=== PATIENT | female | born 2005 | race Two or more races ===

== ENCOUNTER 2025-03-03 17:36 | Inpatient (IN) | payer MEDICAID, OTHER ==
[~2025-03-03] VITALS: Ht 170.2 cm; Wt 51.7 kg
--- NOTE | 2025-03-03 18:03 | ED.PDOC ---
GI ASSESSMENT HPI Comments 19 y.o female presents to the ED for a chief complaint of nausea and vomiting that started 2 weeks ago and is unable to keep anything down. Nonbilious nonbloody. Patient also mentions having a syncopal episode today and complains of lower back pain x 1 year s/p delivering her son. Patient reports back pain was intermittent but recently became more frequent and sharp. Pain is nonradiating. Patient denies any recent falls, back injuries, surgeries, dysuria, hematuria, vaginal bleeding, chills. [facility] and took tablet dosage as suggested. Vitals: Temperature: 100.3 F BP: 95/66 HR: 115 RR: 16 SP02: 95% RA Past medical history: depression, anxiety, and ADHD Past surgical history: 2 neck cyst removed Allergies to morphine and lidocaine HPI: Poor Historian. REVIEW OF SYSTEMS: CONSTITUTIONAL: Denies acute: fever, diaphoresis, chills, HEAD: Denies acute: headache, photophobia Eyes: Denies acute: Double vision, vision loss, eye pain, eye discharge. EARS: Denies acute: tinnitus, hearing loss, ear discharge, ear pain, THROAT: Denies acute: sore throat, swelling, difficulty swallowing , pain with swallowing, change in voice. NECK: Denies acute: neck pain, neck swelling, stiff neck. HEART: Denies acute : chest pain, palpitations, LUNGS: Denies acute: SOB, wheezing, cough, hemoptysis ABDOMEN: Denies acute: abdominal pain, diarrhea, melena , hematemesis, hematochezia SKIN: Denies acute: rash, redness, lesions, itchiness. EXTREMITIES: Denies acute: calf pain, numbness, tingling, weakness, denies pain in extremity. Neuro: Denies acute: focal neurological deficit, motor or sensory focal neurological deficit, tremors, seizure like activity, confusion, dizziness, change in mental status, loss of bowel or bladder function, cauda equina like symptoms. : Denies acute: dysuria, hematuria, flank pain, increase in urinary frequency. PSYCH: Denies acute: hallucination, suicidal ideation, homicidal ideation. FEMALE: Denies acute: abnormal vaginal bleeding, foul odor, unusual discharge. PHYSICAL EXAM: General: ----[id number]----acute distress, awake and alert. Head: normocephalic, atraumatic. Neck: supple, trachea is midline, no swelling. Throat: Normal phonation. Eyes:, no erythema, no purulent discharge, no proptosis, no icterus. Heart: regular tachycardia, no significant murmur appreciated. Lungs: no apparent respiratory distress, Able to speak in full sentences. No wheezing, no rhonchi, no crackles. No stridors Clear to auscultation bilaterally. Abdomen: non tender to palpation, non distended, soft, no guarding, no rebound, + bowel sounds. Neuro: Awake, Alert, oriented to name, self, situation, follows commands GCS=15. Speech is normal. Skin: no petechia, no purpura, no cyanosis, non-pale, not jaundice. Lower extremities: --no - Pitting edema no deformity, no focal swelling, no calf TTP. Makes eye contact. moves all four extremities. Face: no apparent facial droop. Ambulating in the ED independently. ED COURSE: Chief Complaint: Nausea/Vomiting Time Seen by MD: 17:53 Primary Care Provider: unknown Reviewed Notes: Nurses Notes, Allergies Allergies: Coded Allergies: Lidocaine (Verified Allergy, Severe, anaphylaxis, 03/03/25) Morphine (Verified Allergy, Severe, anaphylaxis, 03/03/25) Information Source: Patient Mode of Arrival: Ambulatory Duration: Since onset Past Medical History PAST MEDICAL HISTORY: Anxiety, Depression Past Medical History (Other): ADHD CLAIM REP History: No Pertinent CLAIM REP History Family History Family History: Reviewed,noncontributory to illness Social History Smoker: Non-Smoker Alcohol: Denies ETOH Use Drugs: Denies Drug Use Lives In: Home Was a procedure done? Was a procedure done?: No GI differential Dx Differential Diagnosis: Gastroenteritis, Inflammatory BD, Ovarian cyst/torsion, Pancreatitis, UTI, Dehydration, Electrolyte Imbalance, Food Poisoning, , Bacterial, Parasitic, Viral, Other (DDX include Diverticulitis, colitis, gastroenteritis, acute abdomen, SBO, enteritis, constipation, volvulus, appendicitis, Gallbladder disease, choledocolithiasis, ascending cholangitis, pancreatitis, intraAbdominal mass/neoplasm, hepatitis, UTI, pylonephritis, kidney stone, aneurysm, dissection, Inflammatory bowel disease, gastroparesis, ischemic bowel, ovarian torsion, ovarian cyst/mass, tubo-ovarian abscess, , ectopic , PID, STD. Rule out endometritis or retained products of conception) X-Ray, Labs, Meds, VS Vital Signs Date Time Temp Pulse Resp B/P (MAP) Pulse Ox O2 Delivery O2 Flow Rate FiO2 03/03/25 21:13 99.0 99.0 03/03/25 21:13 99.0 03/03/25 20:13 101.4 03/03/25 19:59 101.4 113 20 93/49 (64) 97 101.4 03/03/25 17:54 100.3 115 16 95/66 (76) 95 100.3 Lab Test 03/03/25 18:10 03/03/25 17:58 Range/Units White Blood Count 10.0 4.4-10.8 10^3/uL Red Blood Count 3.33 L 4.0-5.20 10^6/uL Hemoglobin 9.9 L 12.2-16.2 g/dL Hematocrit 28.6 L 36.0-46.0 % Mean Corpuscular Volume 85.7 80.0-100.0 fL Mean Corpuscular Hemoglobin 29.8 28.0-32.0 pg Mean Corpuscular Hemoglobin Concent 34.8 32.0-36.0 g/dL Red Cell Distribution Width 15.5 H 11.8-14.3 % Platelet Count 281 140-450 10^3/uL Mean Platelet Volume 8.0 6.9-10.8 fL Neutrophils (%) (Auto) 75.0 37.0-80.0 % Lymphocytes (%) (Auto) 14.1 10.0-50.0 % Monocytes (%) (Auto) 10.6 0.0-12.0 % Eosinophils (%) (Auto) 0.1 0.0-7.0 % Basophils (%) (Auto) 0.2 0.0-2.0 % Neutrophils # (Auto) 7.5 1.6-8.6 10 ^3/uL Lymphocytes # (Auto) 1.4 0.4-5.4 10 ^3/uL Monocytes # (Auto) 1.1 0-1.3 10 ^3/uL Eosinophils # (Auto) 0 0-0.8 10 ^3/uL Basophils # (Auto) 0 0-0.2 10 ^3/uL Nucleated Red Blood Cells 0.1 % Sodium Level 132 L 136-145 mmol/L Potassium Level 3.8 3.5-5.1 mmol/L Chloride Level 96 L 98-107 mmol/L Carbon Dioxide Level 25 20-31 mmol/L Anion Gap 11 5-15 Blood Urea Nitrogen 9 9-23 mg/dL Creatinine 0.78 0.550-1.02 mg/dL Glomerular Filtration Rate Calc 111 >90 mL/min BUN/Creatinine Ratio 11.5 10.0-20.0 Serum Glucose 94 74-106 mg/dL Lactic Acid Level 0.6 0.4-2.0 mmol/L Calcium Level 9.4 8.7-10.4 mg/dL Total Bilirubin 2.5 H 0.2-1.0 mg/dL Aspartate Amino Transferase (AST) 9 L 13-40 U/L Alanine Aminotransferase (ALT) < 9 7-40 U/L Alkaline Phosphatase 115 46-116 U/L Total Protein 7.2 5.7-8.2 g/dL Albumin 4.2 3.2-4.8 g/dL Lipase 35 12-53 U/L Beta HCG, Quantitative 129.3 H 1.5-4.2 mIU/mL Urine Color Dark-yellow Yellow Urine Clarity Turbid H Clear Urine pH 6.0 5.0-9.0 Urine Specific [place] 1.017 1.001-1.035 Urine Protein 1+ H Negative Urine Ketones Trace Negative Urine Blood 3+ H Negative /uL Urine Nitrite Negative Negative Urine Bilirubin 1+ H Negative Urine Urobilinogen Over Negative mg/dL Urine Leukocyte Esterase 2+ Negative /uL Urine RBC 20 0 - 4 /hpf Urine Microscopic WBC 45 H 0-5 /HPF Urine Squamous Epithelial Cells Few <5 /hpf Urine Bacteria Mod H None Seen /hpf Urine Mucus Few None Seen Urine Glucose Normal Normal mg/dL Urine Opiates Screen Neg NEGATIVE Urine Fentanyl Screen Neg NEGATIVE Urine Barbiturates Screen Neg NEGATIVE Urine Phencyclidine Screen Neg NEGATIVE Urine Amphetamines Screen Neg NEGATIVE Urine Benzodiazepines Screen Neg NEGATIVE Urine Cocaine Screen Neg NEGATIVE Urine Cannabinoids Screen Neg NEGATIVE Current Medications Medications (Trade) Dose Ordered Sig/Patrica Route Start Time Stop Time Status Last Admin Sodium Chloride 1,000 ml @ 1,000 mls/hr Q1H ONCE IV 03/03/25 18:00 03/03/25 18:59 DC 03/03/25 20:14 Ondansetron HCl (Zofran) 8 mg ONCE ONCE IV 03/03/25 18:00 03/03/25 18:02 DC 03/03/25 20:13 Ceftriaxone Sodium 50 ml @ 100 mls/hr ONCE ONCE IV 03/03/25 18:15 03/03/25 18:44 DC 03/03/25 20:14 Sodium Chloride 1,000 ml @ 1,000 mls/hr Q1H ONCE IV 03/03/25 19:45 03/03/25 20:44 DC 03/03/25 21:15 Acetaminophen (Tylenol Tablet) 650 mg ONCE ONCE PO 03/03/25 20:02 03/03/25 20:03 DC 03/03/25 20:13 Piperacillin Sod/ Tazobactam Sod 100 ml @ 100 mls/hr ONCE ONCE IV 03/03/25 20:30 03/03/25 21:29 DC 03/03/25 20:59 PATIENT: OLY CLARKEACCT: [id number]: [id number] : 2005 LOC: ER ROOM / BED: / AGE / SEX: 19 / F ADM STATUS: REG ER SERVICE 54 ORDERING PHYSICIAN: LUCI HIGH DO PROCEDURE(s): CXRP - CHEST PORTABLE REASON: FEVER ORDER NUMBER(s): [id number], ACCESSION NUMBER(s): [id number] CHEST RADIOGRAPH Indication: FEVER Technique: Single frontal view of the chest was obtained COMPARISON: None FINDINGS: Lines and Tubes: None Lungs: Increased interstitial prominence Pleura: No effusion. No pneumothorax. Cardiomediastinal contours: Unremarkable Bones: Unremarkable IMPRESSION: Increased interstitial prominence; possibly viral pneumonia ATED BY: SANTIAGO THIBODEAUX MD DICTATED DATE/TIME: 03/03/251900 SIGNED BY: SANTIAGO THIBODEAUX MD SIGNED DATE/TIME: 03/03/251900 PATIENT: OLY CLARKEACCT: [id number] UNIT: [id number] : 2005 LOC: ER ROOM / BED: / AGE / SEX: 19 / F ADM STATUS: REG ER SERVICE 0000 ORDERING PHYSICIAN: LUCI HIGH DO PROCEDURE(s): PELUS - PELVIC REASON: S/P ORDER NUMBER(s): [id number], ACCESSION NUMBER(s): [id number] EXAM: US PELVIC CLINICAL HISTORY: S/P TECHNIQUE: Transabdominal ultrasound of the pelvis with color Doppler flow as clinically indicated. COMPARISON: None Findings: Same-day quantitative beta-hCG is not available. Uterus measures 9.7 x 4.2 x 6.8 cm in size with relatively homogeneous echotexture and normal contours. Endometrial thickness measures 1.3 cm with heterogeneous appearance. Cervix appears grossly unremarkable. Right ovary measures 2.5 x 1.8 x 2.0 cm. Left ovary not visualized. Normal right ovarian color Doppler flow. No free fluid in the cul-de-sac. Impression: 1. Uterus grossly unremarkable with thickened and heterogeneous endometrium, nonspecific. Findings may reflect endometritis. 2. Right ovary is within normal limits with normal color flow. ATED BY: JENY WELLS DO DICTATED DATE/TIME: 03/03/251917 SIGNED BY: JENY WELLS DO SIGNED DATE/TIME: 03/03/251917 Time of 1ST Reevaluation: 18:01 Reevaluation 1ST: Unchanged Time of 2ND Reevaluation: 20:28 (The case was discussed with the hypoid gear generator on-call team (HPI, physical exam, labs and diagnostic tests that were available at the time of disposition, ED course, treatment plan) on the phone. They recommended beta-hCG levels and Zosyn. Patient may have pyelonephritis in the setting of fever and UTI low back pain. Dr. Jacques. She agrees to follow in consult.) Time of 3RD Reevaluation: 01:34 Reevaluation 3RD: Improved Consultation: throw out clerk Patient Education/Counseling: Diagnosis, Treatment Family Education/Counseling: No Family Present Comments Patient presented with the above HPI.--fever nausea vomiting----workup was initiated. patient was found with the above mentioned diagnosis. the following medications were ordered: please refer to order lists of meds and tests obtained by myself Dr. High. Patient ED course and VS have been stabilized. Patient has been reassessed in the ED and remained in a stable condition. Pertinent incidental findings were discussed with the patient and/or family. Patient/family voices understanding and is agreeable with plan. Patient has been observed in the ED adequate length of time to insure improvement/stability. Escalation of care considered: Consideration of escalation to observation or admission OB Gyne was consulted. Antibiotics initiated. Fluids initiated. Patient was ADMITTED to the medicine team for further evaluation and treatment of their presentation. All the reports of any imaging studies that were ordered by myself were reviewed by myself. Departure 1 Departure Time of Disposition: 19:41 Impression: Primary Impression: Endometritis Additional Impressions: Nausea and vomiting UTI (urinary tract infection) Fever in adult Pyelonephritis Disposition: ADMITTED INPATIENT Admit to: Tele Condition: Guarded Discharged With: Self Critical Care Note Critical Care Time?: Yes (55 min-critical care time only) I personally scribed for LUCI HIGH DO ([email or web address]) on 03/03/25 at 18:03. Electronically submitted by [facility] Well[facility] ([facility] I personally scribed for LUCI HIGH DO ([email or web address]) on 03/03/25 at 18:11. Electronically submitted by [facility]ja Weller ([facility] I personally scribed for LUCI HIGH DO ([email or web address]) on 03/03/25 at 22:54. Electronically submitted by Chuck Ruffin ([email or web address]). LUCI HIGH DO Mar 03, 2025 18:03
[2025-03-03 18:40] LABS: Basophils # (auto) 0 10 ^3/uL (0-0.2); Basophils % (auto) 0.2 % (0.0-2.0); Eosinophils # (auto) 0 10 ^3/uL (0-0.8); Eosinophils % (auto) 0.1 % (0.0-7.0); Hematocrit 28.6 % (36.0-46.0); Hemoglobin 9.9 g/dL (12.2-16.2); Lymphocytes # (auto) 1.4 10 ^3/uL (0.4-5.4); Lymphocytes % (auto) 14.1 % (10.0-50.0); Mean Corpuscular Hemoglobin 29.8 pg (28.0-32.0); Mean Corpuscular Hgb Conc. 34.8 g/dL (32.0-36.0); Mean Corpuscular Volume 85.7 fL (80.0-100.0); Monocytes # (auto) 1.1 10 ^3/uL (0-1.3); Monocytes % (auto) 10.6 % (0.0-12.0); Neutrophils # (auto) 7.5 10 ^3/uL (1.6-8.6); Nucleated Red Blood Cells % 0.1 %; Platelet Count (auto) 281 10^3/uL (140-450); Red Blood Cells 3.33 10^6/uL (4.0-5.20); Red Cell Distribution Width 15.5 % (11.8-14.3)
[2025-03-03 18:44] LABS: Albumin 4.2 g/dL (3.2-4.8); Alkaline Phosphatase 115 U/L (46-116); Anion Gap 11 (5-15); BUN/Creatinine Ratio 11.5 (10.0-20.0); Calcium 9.4 mg/dL (8.7-10.4); Carbon Dioxide 25 mmol/L (20-31); Glucose 94 mg/dL (74-106); Potassium 3.8 mmol/L (3.5-5.1); Total Protein 7.2 g/dL (5.7-8.2)
[2025-03-03 19:00] LABS: Alanine Aminotransferase < 9 U/L (7-40); Aspartate Aminotransferase 9 U/L (13-40); Bilirubin, Total 2.5 mg/dL (0.2-1.0); Blood Urea Nitrogen 9 mg/dL (9-23); Chloride 96 mmol/L (98-107); Sodium 132 mmol/L (136-145)
--- NOTE | 2025-03-03 19:03 | DVH ---
CHEST RADIOGRAPH Indication: FEVER Technique: Single frontal view of the chest was obtained COMPARISON: None FINDINGS: Lines and Tubes: None Lungs: Increased interstitial prominence Pleura: No effusion. No pneumothorax. Cardiomediastinal contours: Unremarkable Bones: Unremarkable IMPRESSION: Increased interstitial prominence; possibly viral pneumonia
[2025-03-03 19:04] LABS: Urine Bacteria MOD /hpf (None Seen); Urine Blood 3+ /uL (Negative); Urine Clarity Turbid (Clear); Urine Color Dark-Yellow (Yellow); Urine Mucus FEW (None Seen); Urine Protein, UAD 1+ (Negative); Urine Specific Gravity 1.017 (1.001-1.035); Urine Squamous Epithelial Cell FEW /hpf (<5); Urine Urobilinogen OVER mg/dL (Negative); Urine WBC 45 /HPF (0-5)
[2025-03-03 19:10] LABS: Lipase 35 U/L (12-53)
--- NOTE | 2025-03-03 19:21 | DVH ---
EXAM: US PELVIC CLINICAL HISTORY: S/P TECHNIQUE: Transabdominal ultrasound of the pelvis with color Doppler flow as clinically indicated. COMPARISON: None Findings: Same-day quantitative beta-hCG is not available. Uterus measures 9.7 x 4.2 x 6.8 cm in size with relatively homogeneous echotexture and normal contour s. Endometrial thickness measures 1.3 cm with heterogeneous appearance. Cervix appears grossly unrema rkable. Right ovary measures 2.5 x 1.8 x 2.0 cm. Left ovary not visualized. Normal right ovarian color Doppl er flow. No free fluid in the cul-de-sac. Impression: 1. Uterus grossly unremarkable with thickened and heterogeneous endometrium, nonspecific. Findings m ay reflect endometritis. 2. Right ovary is within normal limits with normal color flow.
[2025-03-03] MEDS: ONDANSETRON HCL 4 MG/2 ML VIAL IV ONE (20:13)
[2025-03-03] MEDS: ACETAMINOPHEN 325 MG TAB PO ONE (20:13)
[2025-03-03] MEDS: SODIUM CHLORIDE 0.9% 1,000 ML IV ONE ×2 (20:14→21:15)
[2025-03-03] MEDS: cefTRIAXone 1GM/50ML D5W 50 ML IV ONE (20:14)
[2025-03-03 20:16] LABS: Amphetamine Screen, Urine Neg (NEGATIVE); Barbiturate Scree,Urine Neg (NEGATIVE); Benzodiazephine Screen, Urine Neg (NEGATIVE); Cannabinoid Screen, Urine Neg (NEGATIVE); Cocaine Screen, Urine Neg (NEGATIVE); Opiate Scree,Urine Neg (NEGATIVE); Phencyclidine Screen, Urine Neg (NEGATIVE)
[2025-03-03] MEDS: PIPERACILLIN-TAZOB 3.375GM 100 ML IV ONE (20:59)
--- NOTE | 2025-03-03 23:51 | DVHHPRES ---
History of Present Illness Resident Creating Document: PADMINI HUGHES RESIDENT History of Present Illness Shahid is a 19-year-old female with past medical history of 1 month back after unplanned who was lost to follow-up presented to the ER with a chief complaint of lower abdominal pain and back pain for the past 2 weeks. Patient reports fever and chills for the same duration along with intractable nausea and vomiting which is yellowish in color. She reports diffuse lower abdominal pain, 6/10 without any vaginal discharge. She reports that she has been having chronic back pain for the past 1 year after she had her last section which recently got worsened for the past month after the . In addition she reports pleuritic chest pain. She denies any urinary dysuria, frequency, urgency and reports that the urine is clear. Patient has no primary care physician or OBGYN follow up. She denies taking any medications at home. On arrival to the ER, patient was tachycardic, febrile at 100.3 F, blood pressure 93/49 and saturating on room air. Hemoglobin 9.9, hematocrit 28. WBC 10. HCG was 129. UA showed 3+ blood, 20 RBCs and 45 WBCs with moderate bacteriuria, probably asymptomatic bacteriuria. Ultrasound abdomen showed thickened endometrium at 1.3 cm with heterogenicity probably endometritis. Past medical history: See above Social history Lives in mother, quit vaping 2 weeks ago. Patient vape for the past 5 years. Denies marijuana. Drinks occasionally. Denies illicit drug use. PCP: None OBGYN: None. Patient seen and examined in the ER. Reports lower abdominal pain. Reports intense back pain. Started IV antibiotics clindamycin and gentamicin for endometritis. Smoke: <1 pack per day ALCOHOL: occassional Drugs: None Lives: with Family Review of Systems Constitutional: Yes: Fever, Chills, Weakness Gastrointestinal: Nausea, Vomiting, Abdominal Pain Allergies: Coded Allergies: Lidocaine (Verified Allergy, Severe, anaphylaxis, 03/03/25) Morphine (Verified Allergy, Severe, anaphylaxis, 03/03/25) Exam Vital Signs Vital Signs Date Time Temp Pulse Resp B/P (MAP) Pulse Ox O2 Delivery O2 Flow Rate FiO2 03/03/25 21:13 99.0 99.0 03/03/25 19:59 113 20 93/49 (64) 97 Exam Patient lying in bed, in no acute distress General: thin, afebrile, palor, mucosae are moist Cardiovascular: Regular S1 and S2. No murmurs, gallops or rubs. No JVD elev ation. No pedal edema Respiratory: Normal B/L air entry on room air. Clear lung sounds on auscultation Abdomen: Soft, nontender, nondistended, normoactive bowel sounds, no rebound tenderness, no organomegaly, no masses Genitourinary: Deferred MSK/skin: Mobilizes 4 limbs. Skin is dry and warm Neurological: No motor, no sensitive deficits, normal speech. Pupils are isocoric and reactive. Psych/Mental Status: A/Ox3 Labs/Xrays Labs Test 03/03/25 18:10 03/03/25 17:58 Range/Units White Blood Count 10.0 4.4-10.8 10^3/uL Red Blood Count 3.33 L 4.0-5.20 10^6/uL Hemoglobin 9.9 L 12.2-16.2 g/dL Hematocrit 28.6 L 36.0-46.0 % Mean Corpuscular Volume 85.7 80.0-100.0 fL Mean Corpuscular Hemoglobin 29.8 28.0-32.0 pg Mean Corpuscular Hemoglobin Concent 34.8 32.0-36.0 g/dL Red Cell Distribution Width 15.5 H 11.8-14.3 % Platelet Count 281 140-450 10^3/uL Mean Platelet Volume 8.0 6.9-10.8 fL Neutrophils (%) (Auto) 75.0 37.0-80.0 % Lymphocytes (%) (Auto) 14.1 10.0-50.0 % Monocytes (%) (Auto) 10.6 0.0-12.0 % Eosinophils (%) (Auto) 0.1 0.0-7.0 % Basophils (%) (Auto) 0.2 0.0-2.0 % Neutrophils # (Auto) 7.5 1.6-8.6 10 ^3/uL Lymphocytes # (Auto) 1.4 0.4-5.4 10 ^3/uL Monocytes # (Auto) 1.1 0-1.3 10 ^3/uL Eosinophils # (Auto) 0 0-0.8 10 ^3/uL Basophils # (Auto) 0 0-0.2 10 ^3/uL Nucleated Red Blood Cells 0.1 % Sodium Level 132 L 136-145 mmol/L Potassium Level 3.8 3.5-5.1 mmol/L Chloride Level 96 L 98-107 mmol/L Carbon Dioxide Level 25 20-31 mmol/L Anion Gap 11 5-15 Blood Urea Nitrogen 9 9-23 mg/dL Creatinine 0.78 0.550-1.02 mg/dL Glomerular Filtration Rate Calc 111 >90 mL/min BUN/Creatinine Ratio 11.5 10.0-20.0 Serum Glucose 94 74-106 mg/dL Lactic Acid Level 0.6 0.4-2.0 mmol/L Calcium Level 9.4 8.7-10.4 mg/dL Total Bilirubin 2.5 H 0.2-1.0 mg/dL Aspartate Amino Transferase (AST) 9 L 13-40 U/L Alanine Aminotransferase (ALT) < 9 7-40 U/L Alkaline Phosphatase 115 46-116 U/L Total Protein 7.2 5.7-8.2 g/dL Albumin 4.2 3.2-4.8 g/dL Lipase 35 12-53 U/L Beta HCG, Quantitative 129.3 H 1.5-4.2 mIU/mL Urine Color Dark-yellow Yellow Urine Clarity Turbid H Clear Urine pH 6.0 5.0-9.0 Urine Specific [place] 1.017 1.001-1.035 Urine Protein 1+ H Negative Urine Ketones Trace Negative Urine Blood 3+ H Negative /uL Urine Nitrite Negative Negative Urine Bilirubin 1+ H Negative Urine Urobilinogen Over Negative mg/dL Urine Leukocyte Esterase 2+ Negative /uL Urine RBC 20 0 - 4 /hpf Urine Microscopic WBC 45 H 0-5 /HPF Urine Squamous Epithelial Cells Few <5 /hpf Urine Bacteria Mod H None Seen /hpf Urine Mucus Few None Seen Urine Glucose Normal Normal mg/dL Urine Opiates Screen Neg NEGATIVE Urine Fentanyl Screen Neg NEGATIVE Urine Barbiturates Screen Neg NEGATIVE Urine Phencyclidine Screen Neg NEGATIVE Urine Amphetamines Screen Neg NEGATIVE Urine Benzodiazepines Screen Neg NEGATIVE Urine Cocaine Screen Neg NEGATIVE Urine Cannabinoids Screen Neg NEGATIVE Assessment/Plan Assessment/Plan Sepsis secondary to probable endometritis status post Intractable nausea and vomiting Chronic back pain Asymptomatic bacteriuria Anemia, likely microcytic Plan: Pelvic ultrasound shows Uterus grossly unremarkable with thickened and heterogeneous endometrium, nonspecific. Findings may reflect endometritis. IV fluids, IV clindamycin 900 mg every 8 hours plus gentamicin 5 mg/kg IV every 24 hours In case of absence of favorable response over 24-48 hours, consider adding ampicillin 2 g IV q.6 hour to the regimen, consider CT scan Continue parenteral therapy if favorable responses seen within 24-48 hours and the patient is improving clinically Follow up with blood culture, vaginal culture, wet mount, gonorrhea/chlamydia Follow up with OBGYN Follow up with the stool occult blood, iron profile IV Zofran q.6 hour Diet: NPO Plan discussed with patient in which all questions have been answered Goals of care discussed for more than 28 minutes, full code status Case discussed with Dr. Solomon Plan discussed with: Patient Date of Service: Mar 03, 2025 Billing Provider: RADHA SOLOMON MD Common Visit Codes: 04424-DYQPXGM INP/OBS CARE (HIGH) PADMINI HUGHES RESIDENT Mar 03, 2025 23:51 RADHA SOLOMON MD Mar 04, 2025 21:02
[2025-03-04] VITALS (14 sets, daily range): BP systolic 94–127; BP diastolic 59–75; PULSE 50–89; RESP 12–20; TEMP 97.1–98.8; O2SAT 97–100
[2025-03-04] MEDS ORDERED: GENTAMICIN PER PHARMACY 0 ML IV SCH (00:15)
[2025-03-04] MEDS ORDERED: HYDROcodone-ACET 5/325MG TAB PO PRN (00:30)
[2025-03-04] MEDS: SODIUM CHLORIDE 0.9% 1,000 ML IV SCH (00:30)
[2025-03-04] MEDS ORDERED: MORPHINE SULFATE INJ 2 MG/ml SYRG IV PRN ×3 (00:30→13:45)
[2025-03-04] MEDS: ACETAMINOPHEN 325 MG TAB PO SCH (00:51)
[2025-03-04] MEDS: CLINDAMYCIN 900MG IV 50 ML IV SCH (00:52)
[2025-03-04 02:36] LABS: COVID19 ANTIGEN SOFIA FIA NEGATIVE (NEGATIVE); Rapid Influenza A Negative (Negative); Rapid Influenza B Negative (Negative)
[2025-03-04] MEDS ORDERED: ONDANSETRON HCL 4 MG/2 ML VIAL IV PRN ×2 (02:45→08:30)
[2025-03-04] MEDS: GENTAMICIN SULFATE IV ONE (03:27)
[2025-03-04] MEDS: SODIUM CHL 0.9% IV ONE (03:27)
[2025-03-04 05:01] LABS: Basophils # (auto) 0 10 ^3/uL (0-0.2); Basophils % (auto) 0.3 % (0.0-2.0); Eosinophils # (auto) 0 10 ^3/uL (0-0.8); Eosinophils % (auto) 0.5 % (0.0-7.0); Hematocrit 20.8 % (36.0-46.0); Hemoglobin 7.2 g/dL (12.2-16.2); Lymphocytes # (auto) 1.6 10 ^3/uL (0.4-5.4); Lymphocytes % (auto) 25.2 % (10.0-50.0); Mean Corpuscular Hemoglobin 29.9 pg (28.0-32.0); Mean Corpuscular Hgb Conc. 34.5 g/dL (32.0-36.0); Mean Corpuscular Volume 86.7 fL (80.0-100.0); Monocytes # (auto) 0.9 10 ^3/uL (0-1.3); Monocytes % (auto) 14.1 % (0.0-12.0); Neutrophils # (auto) 3.7 10 ^3/uL (1.6-8.6); Neutrophils % (auto) 59.9 % (37.0-80.0); Platelet Count (auto) 188 10^3/uL (140-450); Red Blood Cells 2.39 10^6/uL (4.0-5.20); Red Cell Distribution Width 15.8 % (11.8-14.3); White Blood Cell 6.2 10^3/uL (4.4-10.8)
[2025-03-04 05:16] LABS: INR 1.02 (0.9-1.15); Prothrombin Time 10.8 sec (9.3-11.8)
[2025-03-04 05:24] LABS: Albumin 3.6 g/dL (3.2-4.8); Alkaline Phosphatase 85 U/L (46-116); Anion Gap 7 (5-15); BUN/Creatinine Ratio 9.5 (10.0-20.0); Carbon Dioxide 25 mmol/L (20-31); Chloride 103 mmol/L (98-107); Glucose 104 mg/dL (74-106); Total Protein 6.3 g/dL (5.7-8.2)
[2025-03-04 05:25] LABS: % Iron Saturation 8.3 % (15-50); Alanine Aminotransferase < 9 U/L (7-40); Aspartate Aminotransferase < 8 U/L (13-40); Bilirubin, Total 1.3 mg/dL (0.2-1.0); Blood Urea Nitrogen 7 mg/dL (9-23); Calcium 8.7 mg/dL (8.7-10.4); Potassium 3.3 mmol/L (3.5-5.1); Sodium 135 mmol/L (136-145)
[2025-03-04] MEDS: SUCCINYLCHOLINE CHLORIDE 20 MG/ML 10ML VIAL IV ONE (06:45)
[2025-03-04] MEDS: ROCURONIUM 10MG/ML 10ML VIAL IV ONE (06:45)
[2025-03-04] MEDS ORDERED: HYDROmorphone HCL 2 MG/ML VL/or syr ONE (06:53)
[2025-03-04] MEDS ORDERED: KETAMINE 50mg/ML 1ml syringe ONE (06:53)
[2025-03-04] MEDS ORDERED: fentaNYL CITRATE 100 MCG/2 ML VL ONE (06:53)
[2025-03-04] MEDS ORDERED: MIDAZOLAM HCL 2MG/2ML 2ml VIAL (1mg/ml) ONE (06:53)
[2025-03-04] MEDS ORDERED: DexAMETHasone SOD PHOS 10MG/1ML VIAL INJ ONE (06:55)
[2025-03-04] MEDS ORDERED: ONDANSETRON HCL 4 MG/2 ML VIAL ONE (06:55)
[2025-03-04] MEDS ORDERED: PROPOFOL 10 MG/ML 20 ML IV ONE (06:55)
[2025-03-04] MEDS ORDERED: SODIUM CHLORIDE LOCK 10 ML ONE (06:55)
[2025-03-04] MEDS: METOCLOPRAMIDE HCL 5MG/ml INJ 2ml VIAL IV ONE (07:15)
[2025-03-04] MEDS: POTASSIUM CHLORIDE 40 MEQ, LIDOCAINE 1% (LOCAL ANESTH.) 4 ML in SODIUM CHL 0.9% 250 ML IV ONE (07:15)
[2025-03-04] MEDS ORDERED: HYDROmorphone HCL 2 MG/ML VL/or syr IV PRN ×2 (07:15)
[2025-03-04] MEDS ORDERED: MORPHINE SULFATE 4 MG/ML SYR/VIAL IV PRN (07:15)
[2025-03-04] MEDS: KETOROLAC TROMETH 30 MG/ML 1ML VIAL IV ONE (07:15)
--- NOTE | 2025-03-04 07:36 | DVHHP ---
ADMIT DATE: 03/03/2025 CHIEF COMPLAINT: Incomplete AB, anemia, and sepsis. HISTORY OF PRESENT ILLNESS: The patient is a 19-year-old 2, para 1 admitted for suspected sepsis and anemia. Her beta hCG was 129. Her ultrasound reveals thickened endometrium 1.3 cm. The patient got an pill about a month ago and started having bleeding. She thought she had a complete miscarriage, but she has been bleeding. Her hemoglobin is 7. She presented to the Emergency Room with lower back pain for 2 weeks, fever, and chills. PAST MEDICAL HISTORY: None. PAST SURGICAL HISTORY: None. SOCIAL HISTORY: Quit smoking. OBSTETRIC AND GYNECOLOGIC HISTORY: One normal vaginal delivery. REVIEW OF SYSTEMS: Consistent with H and P. PHYSICAL EXAMINATION: VITAL SIGNS: Stable at this point. Afebrile currently. HEENT: Pale conjunctivae. CARDIOVASCULAR: Regular rate and rhythm. LUNGS: Clear to auscultation. BREASTS: Symmetrical. No masses. ABDOMEN: Soft and nontender. PELVIC: External genitalia within normal limits. Vagina normal. Scant bleeding noted. Cervix closed. Uterus 10-week size. Adnexa nonpalpable. EXTREMITIES: No clubbing, cyanosis, or edema. IMPRESSION: * Incomplete AB. * Sepsis. The patient is positive for UTI versus sepsis from retained POC. * Anemia. PLAN: The patient is already on antibiotics. The patient was counseled regarding need for a D and C. All options discussed with the patient. The patient fully understands. She wishes to proceed with planned procedure. DO TESHA Brian TID: [id number] RECEIPT: [id number]
[2025-03-04] MEDS: OXYTOCIN 10UNIT/ML 1ML VIAL ONE (08:15)
[2025-03-04] MEDS: LACT. RINGERS/OXYTOCIN 20UNITS 1,000 ML IV ONE (08:31)
[2025-03-04] MEDS: CYANOCOBALAMIN 500 MCG TAB PO SCH (10:00)
[2025-03-04] MEDS: GENTAMICIN SULFATE 240 MG in D5W 5% 100 ML IV SCH (10:00)
--- NOTE | 2025-03-04 10:07 | DVHOP2 ---
Operative Report DATE OF OPERATION: 03/04/25 PREOPERATIVE DIAGNOSES: Incomplete ,sepsis due to retained poc and uti ,severe anemia POSTOPERATIVE DIAGNOSES: same SURGEON: Oscar Jacques D.O. ANESTHESIOLOGIST: jovita TYPE OF ANESTHESIA : MAC CONSENT: The patient was informed of the risks and benefits of the procedure. The patient was informed of the risks and benefits of the procedure. These include but are not limited to , complications of anesthesia, postoperative infection, incomplete relief of symptoms, recurrence of symptoms, damage to bl ood vessels, nerves and tendons, deep venous thrombosis, pulmonary embolism and possible need for repeat surgery in the future. FINDINGS: Cervix is 1 cm and uterus 9 weeks' size. Adnexa nonpalpable.mod amount of poc obtained TISSUE TO PATHOLOGY: POC. PROCEDURES: Dilatation and curettage and suction curettage. PROCEDURE IN DETAIL: The patient was taken to the operating room where she was placed under MAC anesthesia. The patient was then prepped and draped in the usual sterile manner in dorsal lithotomy position. Bladder was emptied using straight catheter. Examination under anesthesia revealed the above findings. A weighted speculum was placed in the vagina. Anterior lip of the cervix was grasped using a single-tooth tenaculum. Cervix was dilated. Uterus was sounded to 9 cm. Products of conception were evacuated using suction curette, size #7, sharp curetting of endometrial cavity was done. The patient tolerated the procedure well. All the instruments were removed from vagina and cervix. The patient was taken to the recovery room in a stable condition. ESTIMATED BLOOD LOSS: 100 mL Visit Coding OBGYN Date of Service: Mar 04, 2025 Billing Provider: OSCAR JACQUES DO [employer] [facility] Common Visit Codes: 02401-SLK/OBS SAME DATE (HIGH) ST[facility] [employer] Procedure Codes: 46094-E&C, DIAG OR THERAPEUTIC OSCAR JACQUES DO Mar 04, 2025 10:07
--- NOTE | 2025-03-04 10:09 | POSTOP ---
Post-Operative Note Post-Operative Note Preop Diagnosis septic incompelet ab,anemia,uti Postop Diagnosis: same Operation performed d and c ,suction currettage Specimen poc Anesthesia: Mac Anesthesiologist: jovita Blood Loss(fluid mgmt) 100ml Surgeon Oscar Jacques Implant na Complications & Mgmt none Date 03/04/25 Time 10:07 Visit Coding OBGYN Date of Service: Mar 04, 2025 Billing Provider: OSCAR JACQUES DO PROCESS MOLD TECHNICIAN Common Visit Codes: 86857-LGS/OBS SAME DATE (HIGH) PROCESS MOLD TECHNICIAN Procedure Codes: 65317-H&C, DIAG OR THERAPEUTIC OSCAR JACQUES DO Mar 04, 2025 10:08
[2025-03-04] MEDS: ERGOCALCIFEROL 50,000 UNIT(1.25MG) CAP PO SCH (11:43)
[2025-03-04] MEDS ORDERED: HYDROcodone-ACET 7.5/325MG TAB PO PRN (13:45)
[2025-03-04] MEDS: LACTATED RINGER'S 1,000 ML IV SCH (15:00)
--- NOTE | 2025-03-04 18:33 | DVHPNRES ---
Progress Note Date Seen: Mar 04, 2025 Resident Creating Document: SEAN HUANG RONNIE Has the PT tested + for MRSA If YES, has PT been informed?: No Medical Necessity Reason Pt with a Central, PICC or Fol: No Subjective Review of Systems Justice is a 19-year-old female with past medical history of 1 month back after unplanned who was lost to follow-up presented to the ER with a chief complaint of lower abdominal pain and back pain for the past 2 weeks. Patient reports fever and chills for the same duration along with intractable nausea and vomiting which is yellowish in color. She reports diffuse lower abdominal pain, 6/10 without any vaginal discharge. She reports that she has been having chronic back pain for the past 1 year after she had her last section which recently got worsened for the past month after the . In addition she reports pleuritic chest pain. She denies any urinary dysuria, frequency, urgency and reports that the urine is clear. Patient has no primary care physician or OBGYN follow up. She denies taking any medications at home. On arrival to the ER, patient was tachycardic, febrile at 100.3 F, blood pressure 93/49 and saturating on room air. Hemoglobin 9.9, hematocrit 28. WBC 10. HCG was 129. UA showed 3+ blood, 20 RBCs and 45 WBCs with moderate bacteriuria, probably asymptomatic bacteriuria. Ultrasound abdomen showed thickened endometrium at 1.3 cm with heterogenicity probably endometritis. Social history: Lives in [place], quit vaping 2 weeks ago. Patient vape for the past 5 years. Denies marijuana. Drinks occasionally. Denies illicit drug use. On 03/04/25, the patient seen and examined postop at the bedside. Patient was complaining of mild abdominal pain. Patient reports: Feels better Changes from previous H/P or p: Changes Objective vital signs Vital Sign Date Time Temp Pulse Resp B/P (MAP) Pulse Ox O2 Delivery O2 Flow Rate FiO2 03/04/25 16:35 61 18 94/65 (75) 100 03/04/25 11:15 98.8 98.8 03/04/25 08:06 Mask 6 100 Total Intake and Output 03/03/25 03/03/25 03/04/25 15:00 23:00 07:00 Intake Total 2050 ml 270 ml Balance 2050 ml 270 ml medications Current Medications Medications Dose Ordered Sig/Patrica Route Start Time Stop Time Status Last Admin Dose Admin Clindamycin Phosphate 50 ml @ 50 mls/hr Q8HR IV 03/04/25 00:15 03/04/25 18:06 50 MLS/HR Gentamicin Sulfate 0 ml @ 0 mls/hr PER PHARMACY IV 03/04/25 00:15 03/18/25 00:14 Acetaminophen 1,000 mg Q8HR PO 03/04/25 00:30 03/04/25 18:24 1,000 MG Sodium Chloride 1,000 ml @ 125 mls/hr Q8H IV 03/04/25 00:30 Ergocalciferol 50,000 unit Q7D PO 03/04/25 07:30 03/04/25 11:43 50,000 UNIT Cyanocobalamin 2,000 mcg DAILY PO 03/04/25 10:00 03/04/25 10:00 2,000 MCG Lactated Ringer's 1,000 ml @ 150 mls/hr Q6H40M IV 03/04/25 15:00 Ondansetron HCl 4 mg Q4HPRN PRN IV 03/04/25 08:30 Gentamicin Sulfate 240 mg/ Dextrose 106 ml @ 100 mls/hr DAILY@1000 IV 03/04/25 10:00 03/04/25 10:00 100 MLS/HR Acetaminophen/ Hydrocodone Bitart 1 tab Q4HP PRN PO 03/04/25 13:45 Hold Morphine Sulfate 1 mg Q4HP PRN IV 03/04/25 13:45 Hold Examination General Appearance: Alert, Oriented X3, Cooperative, No acute distress HEENT: Atraumatic, PERRLA, EOMI, Mucous membrane moist/pink Respiratory: Clear to auscultation, Normal air movement Cardiovascular: Regular rate, Normal S1, Normal S2, No murmurs, no chest wall tenderness Abdominal: Mild abdominal tenderness Extremities: No clubbing, No cyanosis, No edema, Normal pulses, No tenderness/swelling Skin: No rashes, No breakdown, No significant lesion Neuro: Normal gait, Normal speech, Strength at 5/5 X4 ext, Normal tone, Sensation intact, Cranial nerves 3-12 NL, Reflexes 2+ Psych/Mental Status: Mental status NL, Mood NL laboratory and microbiology Laboratory Tests 03/04/25 04:40 Test 03/04/25 04:40 Range/Units Serum Glucose 104 74-106 mg/dL Microbiology Date/Time Source Procedure Growth Status 03/03/25 18:10 Blood Blood Culture - Preliminary NO GROWTH AFTER 24 HOURS OF INCUBATION. Resulted Labs and/or images reviewed: Labs reviewed by me, Image(s) reviewed by me Problem List/Assessment/Plan Problem List/Assessment/Plan Sepsis, due to endometritis Endometritis, due to incomplete /retained poc Complicated UTI Status post D&C, suction currettage Severe anemia, likely due to bleeding/iron-deficiency anemia Uterus grossly unremarkable with thickened and heterogeneous endometrium, nonspecific. Findings may reflect endometritis Gyne consulted, performed D&C Post D&C, the patient is stable with no active complaint, has spotting per vagina Empiric antibiotic, clindamycin and gentamicin IV fluid H&H trend Pain management Hypokalemia, repleted Raised bilirubin, likely due to bleeding DIET: Regular diet DVT PROPHYLAXIS: SCD CODE STATUS: Goal of care discussed for more than 18 minutes, full code DISPOSITION: Med/surge Patient's status and plan discussed with the patient. Case discussed with Dr. Rice. Plan discussed with: Patient, Other (RN) My Orders My Orders Orders - SEAN HUANG RESDIENT Procedure Category Date Status Time Hydrocodone-Acet PHA 03/04/25 In Process 7.5/325mg Tab ([place] 13:45 Morphine Sulfate PHA 03/04/25 In Process Injection 13:45 Regular Diet DIET 03/04/25 Transmitted [facility] 03/04/25 In Process Clarification: 23:59 Date of Service: Mar 04, 2025 Billing Provider: ZEB VINES MD Common Visit Codes: 18416-[id number] INP/OBS CARE(HIGH) SEAN HUANG RESDIENT Mar 04, 2025 18:33 ZEB VINES MD Mar 05, 2025 00:38
[2025-03-04] MEDS: POTASSIUM EFFERVESENT TAB 25 MEQ PO ONE (19:03)
[2025-03-04 20:09] LABS: Basophils # (auto) 0 10 ^3/uL (0-0.2); Basophils % (auto) 0.1 % (0.0-2.0); Eosinophils # (auto) 0 10 ^3/uL (0-0.8); Hematocrit 30.2 % (36.0-46.0); Hemoglobin 10.3 g/dL (12.2-16.2); Lymphocytes % (auto) 16.5 % (10.0-50.0); Mean Corpuscular Hemoglobin 30.1 pg (28.0-32.0); Mean Corpuscular Volume 88.5 fL (80.0-100.0); Monocytes # (auto) 0.3 10 ^3/uL (0-1.3); Monocytes % (auto) 5.4 % (0.0-12.0); Neutrophils # (auto) 4.7 10 ^3/uL (1.6-8.6); Platelet Count (auto) 237 10^3/uL (140-450); Red Blood Cells 3.42 10^6/uL (4.0-5.20); Red Cell Distribution Width 15.7 % (11.8-14.3)
--- NOTE | 2025-03-04 21:24 | DVHINCON2 ---
Date of service: Mar 04, 2025 Family History: Patient reports no known family medical history. Allergies: Coded Allergies: Lidocaine (Verified Allergy, Severe, anaphylaxis, 03/03/25) Morphine (Verified Allergy, Severe, anaphylaxis, 03/03/25) Home Meds Active Scripts Amoxicillin & Pot Clavulanate (AUGMENTIN TABLET) 875 Mg Tb, 875 MG PO BID for 7 Days, #14 TAB Prov:SEAN HUANG RESDIENT 03/05/25 Current Medications Current Medications Medications (Trade) Dose Ordered Sig/Patrica Route PRN Reason Start Time Stop Time Status Last Admin Clindamycin Phosphate 50 ml @ 50 mls/hr Q8HR IV 03/04/25 00:15 03/04/25 21:07 DC 03/04/25 18:06 Gentamicin Sulfate 0 ml @ 0 mls/hr PER PHARMACY IV 03/04/25 00:15 03/18/25 00:14 Acetaminophen/ Hydrocodone Bitart ([place] 5/325MG Tab) 1 tab Q4HPRN PRN PO MODERATE PAIN (4-6 PAIN SCALE) 03/04/25 00:30 03/04/25 01:03 DC Morphine Sulfate 1 mg Q4HPRN PRN IV SEVERE PAIN (7-10 PAIN SCALE) 03/04/25 00:30 03/04/25 01:03 DC Acetaminophen (Tylenol Tablet) 1,000 mg Q8HR PO 03/04/25 00:30 03/04/25 21:08 DC 03/04/25 18:24 Sodium Chloride 1,000 ml @ 125 mls/hr Q8H IV 03/04/25 00:30 Ondansetron HCl (Zofran) 4 mg Q6HPRN PRN IV NAUSEA / VOMITING 03/04/25 02:45 03/04/25 13:49 DC Hydromorphone HCl (Dilaudid Injection) 0.5 mg Q10M PRN IV SEVERE PAIN (7-10 PAIN SCALE) 03/04/25 07:15 03/04/25 12:00 DC Morphine Sulfate 2 mg Q4H PRN IV BREAKTHRU PAIN SCALE 7-10 03/04/25 07:15 03/04/25 12:00 DC Hydromorphone HCl (Dilaudid Injection) 0.25 mg Q10M PRN IV MODERATE PAIN (4-6 PAIN SCALE) 03/04/25 07:15 03/04/25 12:00 DC Morphine Sulfate 1 mg Q30M PRN IV SEVERE PAIN (7-10 PAIN SCALE) 03/04/25 08:30 03/04/25 12:00 DC Ergocalciferol (Vitamin D 50,000 Unit) 50,000 unit Q7D PO 03/04/25 07:30 03/04/25 11:43 Cyanocobalamin (Vitamin B-12) 2,000 mcg DAILY PO 03/04/25 10:00 03/04/25 10:00 Lactated Ringer's 1,000 ml @ 150 mls/hr Q6H40M IV 03/04/25 15:00 03/04/25 19:11 DC 03/04/25 15:00 Ondansetron HCl (Zofran) 4 mg Q4HPRN PRN IV NAUSEA / VOMITING 03/04/25 08:30 Gentamicin Sulfate 240 mg/ Dextrose 106 ml @ 100 mls/hr DAILY@1000 IV 03/04/25 10:00 03/04/25 10:00 Acetaminophen/ Hydrocodone Bitart ([place] 7.5/325MG Tab) 1 tab Q4HP PRN PO MODERATE PAIN (4-6 PAIN SCALE) 03/04/25 13:45 Hold Morphine Sulfate 1 mg Q4HP PRN IV SEVERE PAIN (7-10 PAIN SCALE) 03/04/25 13:45 Hold Clindamycin Phosphate 50 ml @ 50 mls/hr Q8H IV 03/05/25 02:00 Acetaminophen (Tylenol Tablet) 1,000 mg Q8H PO 03/05/25 02:00 Vital Signs Vital Signs Date Time Temp Pulse Resp B/P (MAP) Pulse Ox O2 Delivery O2 Flow Rate FiO2 03/04/25 16:35 61 18 94/65 (75) 100 03/04/25 11:15 98.8 98.8 03/04/25 08:06 Mask 6 100 Labs/Diagnostic Data Labs Test 03/04/25 19:58 03/04/25 04:40 03/04/25 01:50 03/03/25 18:10 Range/Units White Blood Count 6.0 4.4-10.8 10^3/uL Red Blood Count 3.42 L 4.0-5.20 10^6/uL Hemoglobin 10.3 #L 12.2-16.2 g/dL Hematocrit 30.2 #L 36.0-46.0 % Mean Corpuscular Volume 88.5 80.0-100.0 fL Mean Corpuscular Hemoglobin 30.1 28.0-32.0 pg Mean Corpuscular Hemoglobin Concent 34.0 32.0-36.0 g/dL Red Cell Distribution Width 15.7 H 11.8-14.3 % Platelet Count 237 140-450 10^3/uL Mean Platelet Volume 8.1 6.9-10.8 fL Neutrophils (%) (Auto) 78.0 37.0-80.0 % Lymphocytes (%) (Auto) 16.5 10.0-50.0 % Monocytes (%) (Auto) 5.4 0.0-12.0 % Eosinophils (%) (Auto) 0.0 0.0-7.0 % Basophils (%) (Auto) 0.1 0.0-2.0 % Neutrophils # (Auto) 4.7 1.6-8.6 10 ^3/uL Lymphocytes # (Auto) 1.0 0.4-5.4 10 ^3/uL Monocytes # (Auto) 0.3 0-1.3 10 ^3/uL Eosinophils # (Auto) 0 0-0.8 10 ^3/uL Basophils # (Auto) 0 0-0.2 10 ^3/uL Nucleated Red Blood Cells 0.0 % Random Gentamicin Level 2.0 0-5 ug/mL Prothrombin Time 10.8 9.3-11.8 sec Prothrombin Time INR 1.02 0.9-1.15 Activated Partial Thromboplast Time 29.0 24.5-34.5 SEC Sodium Level 135 L 136-145 mmol/L Potassium Level 3.3 L 3.5-5.1 mmol/L Chloride Level 103 98-107 mmol/L Carbon Dioxide Level 25 20-31 mmol/L Anion Gap 7 5-15 Blood Urea Nitrogen 7 L 9-23 mg/dL Creatinine 0.74 0.550-1.02 mg/dL Glomerular Filtration Rate Calc 118 >90 mL/min BUN/Creatinine Ratio 9.5 L 10.0-20.0 Serum Glucose 104 74-106 mg/dL Calcium Level 8.7 8.7-10.4 mg/dL Magnesium Level 2.0 1.6-2.6 mg/dL Iron Level 19 L 50-170 ug/dL Total Iron Binding Capacity 228 L 250-425 ug/dL Percent Iron Saturation 8.3 L 15-50 % Total Bilirubin 1.3 H 0.2-1.0 mg/dL Aspartate Amino Transferase (AST) < 8 L 13-40 U/L Alanine Aminotransferase (ALT) < 9 7-40 U/L Alkaline Phosphatase 85 46-116 U/L Total Protein 6.3 5.7-8.2 g/dL Albumin 3.6 3.2-4.8 g/dL Vitamin B12 Level 277 211-911 pg/mL Vitamin D 25-Hydroxy 37.7 30.0-100 ng/mL Thyroid Stimulating Hormone (TSH) 3.82 0.55-4.78 uIU/mL HIV (1&2) Antibody Negative Negative Influenza Type A Antigen Negative Negative Influenza Type B Antigen Negative Negative SARS-CoV-2 Antigen (Rapid) Negative NEGATIVE Lactic Acid Level 0.6 0.4-2.0 mmol/L Lipase 35 12-53 U/L Beta HCG, Quantitative 129.3 H 1.5-4.2 mIU/mL Test 03/03/25 17:58 Range/Units Urine Color Dark-yellow Yellow Urine Clarity Turbid H Clear Urine pH 6.0 5.0-9.0 Urine Specific [place] 1.017 1.001-1.035 Urine Protein 1+ H Negative Urine Ketones Trace Negative Urine Blood 3+ H Negative /uL Urine Nitrite Negative Negative Urine Bilirubin 1+ H Negative Urine Urobilinogen Over Negative mg/dL Urine Leukocyte Esterase 2+ Negative /uL Urine RBC 20 0 - 4 /hpf Urine Microscopic WBC 45 H 0-5 /HPF Urine Squamous Epithelial Cells Few <5 /hpf Urine Bacteria Mod H None Seen /hpf Urine Mucus Few None Seen Urine Glucose Normal Normal mg/dL Urine Opiates Screen Neg NEGATIVE Urine Fentanyl Screen Neg NEGATIVE Urine Barbiturates Screen Neg NEGATIVE Urine Phencyclidine Screen Neg NEGATIVE Urine Amphetamines Screen Neg NEGATIVE Urine Benzodiazepines Screen Neg NEGATIVE Urine Cocaine Screen Neg NEGATIVE Urine Cannabinoids Screen Neg NEGATIVE Microbiology Date/Time Source Procedure Growth Status 03/03/25 18:10 Blood Blood Culture - Preliminary NO GROWTH AFTER 24 HOURS OF INCUBATION. Resulted Problems(with codes): (1) Endometritis (2) Pyelonephritis (3) UTI (urinary tract infection) (4) Nausea and vomiting (5) Fever in adult Plan/Recommendation ASSESSMENT AND PLAN: ID Problem List: - Status post medical one month ago - Abnormal uterine bleeding - Suspected septic - Possible endometritis - Anemia (hemoglobin 7-9.9) - Possible urinary tract infection Assessment This is a 19-year-old female, , with a history of prior normal vaginal delivery and medical approximately one month ago, presenting with continued abnormal uterine bleeding, fever, chills, anemia (hemoglobin reportedly as low as 7, currently 9.9), and lower back pain. Patient reports persistent bleeding since , with associated fevers and chills. Denies significant alcohol or heavy drug use; is a former smoker. Ultrasound shows thickened, heterogeneous endometrium (1.3 cm), possibly reflecting endometritis; uterus otherwise unremarkable; right ovary normal with preserved color flow. Labs reveal leukocytosis (WBC 10.0), anemia (Hb 9.9), and thrombocytosis (platelets 281). Basic metabolic panel is unremarkable. Liver function tests are within normal limits. Beta-hCG is 26.1. Urinalysis shows pyuria and leukocyte esterase, raising concern for possible urinary tract infec tion. Infectious screening (influenza, COVID-19, HIV) negative. Blood cultures are negative to date. Chest imaging suggests increased interstitial prominence, possibly viral pneumonia. Plan: - Initiate clindamycin 900 mg IV every 8 hours plus gentamicin 5 mg/kg IV every 24 hours; dose gentamicin per pharmacy. - If improved over the next 24-48 hours, consider transition to ampicillin 2 g IV every 6 hours. - When stable, consider discharge on oral amoxicillin-clavulanate (Augmentin) regimen. - Monitor for signs and symptoms of infection; reassess clinical status routinely. - Follow up on urinalysis and pending urine/blood cultures. - Monitor hemoglobin and transfuse if hemoglobin <7 or platelets <100. - Symptomatic management of lower back pain and abnormal uterine bleeding. - Monitor for progression/resolution of fevers and chills. - Assess for need for further gynecological evaluation/intervention if bleeding persists or infection is unresponsive. Isolation Precautions: Not specified. Assessment and plan was discussed with the patient as written above. Plan is subject to change pending incorporation of new incoming information/heather gnostics. Updates may be added as an addendum at the bottom (OR TOP) of this note. Thank you for interesting consult. ID will continue to follow. Please contact Infectious Disease for any questions or concerns. Lucero Castillo M.D. [facility] Ph: ? History: The patient's chart and medications were reviewed in detail and the patient was seen and examined. History obtained from: patient This is a 19-year-old female, , who presents with continued abnormal uterine bleeding, lower back pain, and fevers/chills approximately one month following a medical . She had one prior normal vaginal delivery. The patient is a former smoker, denies alcohol or heavy drug use. Obstetric history is otherwise unremarkable. Review of Systems: A complete 10-system review of systems was completed and negative except as noted in the HPI or here. ROS: - CONSTITUTIONAL: Reports fevers and chills. Denies weight loss. - HEENT: Not discussed. - RESPIRATORY: No cough or shortness of breath reported. Chest imaging suggests possible viral pneumonia. - CV: Not discussed. - GI: Denies nausea or vomiting. Reports abdominal pain. - : Reports abnormal uterine bleeding. No dysuria discussed. - MSK: Reports lower back pain. - SKIN: Not discussed. - NEUROLOGICAL: Not discussed. - PSYCHIATRIC: Not discussed. Past Medical History: - UM (Unable to further specify based on transcript) Past Surgical History: Not discussed. Obstetric History: - One prior normal vaginal delivery - Medical approximately one month ago Home Medications: Not discussed. Allergies: Not discussed. Family History: Not discussed. Social History: - Former smoker - Denies alcohol and heavy drug use - No further details provided Objective: Vital Signs: Not provided in transcript. Physical Exam: General: NAD Neck: Supple. No masses. HEENT: PERRL. Normal lids and conjunctiva. Moist mucous membranes. Oropharynx without lesions, exudates or excessive erythema. Normal appearance of the external aspects of the nose and ears. Heart: Regular rhythm, normal rate. No murmur. No lower extremity edema. Lungs: Normal respiratory effort. Clear to auscultation bilaterally. No wheezes. No crackles. Abdomen: Mildly gravid uterus, tenderness in lower abdomen. Soft. Non- tender elsewhere. Non-distended. No masses or abdominal hernia. Msk: Tenderness in lower back. No digital cyanosis. Normal strength and tone in all 4 limbs. Skin: Warm and dry, no rashes. Neuro: Alert. No facial droop or slurred speech. Extra-ocular movements intact. Sensation intact to soft touch in all 4 limbs. Psych: Appropriate mood. Full affect. Oriented to person, place, time, and situation. Lines: Not discussed. Diagnostic Studies: Available diagnostic studies were reviewed personally. Significant relevant results and findings are outlined below or addressed in the Assessment and Plan above. Pertinent Labs: WBC: 10.0 - Platelets: 281 - Hemoglobin: 9.9 (previous low of 7 reported) - Sodium: 137 BUN: 8 - Creatinine: 0.73 AST: <8 ALT: <9 - Alk Phos: 103 - Beta-HC.1 - Urinalysis: Pyuria, 2+ leukocyte esterase - Blood cultures: No growth to date after 24 hours - Infectious studies: Influenza A & B negative, COVID-19 negative, HIV negative, gonorrhea/chlamydia pending Imaging: - Public control signs: Uterus grossly unremarkable; thickened and heterogeneous endometrium (1.3 cm); possible endometritis. - Right ovary within normal limits with normal color flow. - Chest imaging: Increased interstitial prominence, possibly viral pneumonia. Additional Data: None provided. If additional history, medication, or allergy information is available, please update as appropriate. Plan discussed with: Patient LUCERO CASTILLO MD Mar 04, 2025 21:24
[2025-03-05 01:00] VITALS: BP 95/61; PULSE 52; RESP 20; TEMP 97.3; O2SAT 98
[2025-03-05] MEDS: CLINDAMYCIN 900MG IV 50 ML IV SCH (02:29)
[2025-03-05] MEDS: ACETAMINOPHEN 325 MG TAB PO SCH (02:29)
[2025-03-05 05:00] VITALS: BP 103/67; PULSE 69; RESP 20; TEMP 97.4; O2SAT 98
[2025-03-05] MEDS: SODIUM CHLORIDE 0.9% 1,000 ML IV ONE (07:00)
[2025-03-05 07:26] LABS: Basophils # (auto) 0 10 ^3/uL (0-0.2); Basophils % (auto) 0.1 % (0.0-2.0); Eosinophils # (auto) 0 10 ^3/uL (0-0.8); Eosinophils % (auto) 0.2 % (0.0-7.0); Hemoglobin 10.1 g/dL (12.2-16.2); Lymphocytes # (auto) 1.7 10 ^3/uL (0.4-5.4); Lymphocytes % (auto) 21.2 % (10.0-50.0); Mean Corpuscular Hemoglobin 29.5 pg (28.0-32.0); Mean Corpuscular Hgb Conc. 33.7 g/dL (32.0-36.0); Mean Corpuscular Volume 87.6 fL (80.0-100.0); Monocytes # (auto) 0.6 10 ^3/uL (0-1.3); Monocytes % (auto) 7.1 % (0.0-12.0); Neutrophils # (auto) 5.6 10 ^3/uL (1.6-8.6); Neutrophils % (auto) 71.4 % (37.0-80.0); Nucleated Red Blood Cells % 0.1 %; Platelet Count (auto) 271 10^3/uL (140-450); Red Blood Cells 3.43 10^6/uL (4.0-5.20); Red Cell Distribution Width 15.4 % (11.8-14.3); White Blood Cell 7.8 10^3/uL (4.4-10.8)
[2025-03-05 07:35] LABS: Albumin 3.4 g/dL (3.2-4.8); Alkaline Phosphatase 103 U/L (46-116); Anion Gap 8 (5-15); Bilirubin, Total 1.1 mg/dL (0.2-1.0); Calcium 9.4 mg/dL (8.7-10.4); Carbon Dioxide 23 mmol/L (20-31); Chloride 106 mmol/L (98-107); Potassium 4.5 mmol/L (3.5-5.1); Sodium 137 mmol/L (136-145)
[2025-03-05 07:44] LABS: Alanine Aminotransferase < 9 U/L (7-40); Aspartate Aminotransferase < 8 U/L (13-40); Blood Urea Nitrogen 8 mg/dL (9-23); Glucose 128 mg/dL (74-106)
[2025-03-05 08:00] VITALS: PULSE 74; RESP 19; O2SAT 98
[2025-03-05 09:00] VITALS: BP 154/72; PULSE 66; RESP 17; TEMP 98.2; O2SAT 100
[2025-03-05] MEDS ORDERED: AUG875T PO (11:10)
--- NOTE | 2025-03-05 12:02 | DVHDSRES ---
Discharge Summary Date of Admission Resident Creating Document: ALONA GUZMAN RESDIENT Mar 03, 2025 at 23:50 Date of Discharge: Mar 05, 2025 Labs/Diagnostic Data: Laboratory Results Test 03/05/25 06:05 03/04/25 19:58 03/04/25 04:40 03/04/25 01:50 White Blood Count 7.8 10^3/uL (4.4-10.8) Red Blood Count 3.43 10^6/uL (4.0-5.20) Hemoglobin 10.1 g/dL (12.2-16.2) Hematocrit 30.0 % (36.0-46.0) Mean Corpuscular Volume 87.6 fL (80.0-100.0) Mean Corpuscular Hemoglobin 29.5 pg (28.0-32.0) Mean Corpuscular Hemoglobin Concent 33.7 g/dL (32.0-36.0) Red Cell Distribution Width 15.4 % (11.8-14.3) Platelet Count 271 10^3/uL (140-450) Mean Platelet Volume 8.4 fL (6.9-10.8) Neutrophils (%) (Auto) 71.4 % (37.0-80.0) Lymphocytes (%) (Auto) 21.2 % (10.0-50.0) Monocytes (%) (Auto) 7.1 % (0.0-12.0) Eosinophils (%) (Auto) 0.2 % (0.0-7.0) Basophils (%) (Auto) 0.1 % (0.0-2.0) Neutrophils # (Auto) 5.6 10 ^3/uL (1.6-8.6) Lymphocytes # (Auto) 1.7 10 ^3/uL (0.4-5.4) Monocytes # (Auto) 0.6 10 ^3/uL (0-1.3) Eosinophils # (Auto) 0 10 ^3/uL (0-0.8) Basophils # (Auto) 0 10 ^3/uL (0-0.2) Nucleated Red Blood Cells 0.1 % Sodium Level 137 mmol/L (136-145) Potassium Level 4.5 mmol/L (3.5-5.1) Chloride Level 106 mmol/L (98-107) Carbon Dioxide Level 23 mmol/L (20-31) Anion Gap 8 (5-15) Blood Urea Nitrogen 8 mg/dL (9-23) Creatinine 0.73 mg/dL (0.550-1.02) Glomerular Filtration Rate Calc 120 mL/min (>90) BUN/Creatinine Ratio 11.0 (10.0-20.0) Serum Glucose 128 mg/dL (74-106) Calcium Level 9.4 mg/dL (8.7-10.4) Total Bilirubin 1.1 mg/dL (0.2-1.0) Aspartate Amino Transferase (AST) < 8 U/L (13-40) Alanine Aminotransferase (ALT) < 9 U/L (7-40) Alkaline Phosphatase 103 U/L (46-116) Total Protein 6.0 g/dL (5.7-8.2) Albumin 3.4 g/dL (3.2-4.8) Beta HCG, Quantitative 26.1 mIU/mL (1.5-4.2) Random Gentamicin Level 2.0 ug/mL (0-5) Prothrombin Time 10.8 sec (9.3-11.8) Prothrombin Time INR 1.02 (0.9-1.15) Activated Partial Thromboplast Time 29.0 SEC (24.5-34.5) Magnesium Level 2.0 mg/dL (1.6-2.6) Iron Level 19 ug/dL (50-170) Total Iron Binding Capacity 228 ug/dL (250-425) Percent Iron Saturation 8.3 % (15-50) Vitamin B12 Level 277 pg/mL (211-911) Vitamin D 25-Hydroxy 37.7 ng/mL (30.0-100) Thyroid Stimulating Hormone (TSH) 3.82 uIU/mL (0.55-4.78) HIV (1&2) Antibody Negative (Negative) Influenza Type A Antigen Negative (Negative) Influenza Type B Antigen Negative (Negative) SARS-CoV-2 Antigen (Rapid) Negative (NEGATIVE) Test 03/03/25 18:10 03/03/25 17:58 Lactic Acid Level 0.6 mmol/L (0.4-2.0) Lipase 35 U/L (12-53) Urine Color Dark-yellow (Yellow) Urine Clarity Turbid (Clear) Urine pH 6.0 (5.0-9.0) Urine Specific [place] 1.017 (1.001-1.035) Urine Protein 1+ (Negative) Urine Ketones Trace (Negative) Urine Blood 3+ /uL (Negative) Urine Nitrite Negative (Negative) Urine Bilirubin 1+ (Negative) Urine Urobilinogen Over mg/dL (Negative) Urine Leukocyte Esterase 2+ /uL (Negative) Urine RBC 20 /hpf (0 - 4) Urine Microscopic WBC 45 /HPF (0-5) Urine Squamous Epithelial Cells Few /hpf (<5) Urine Bacteria Mod /hpf (None Seen) Urine Mucus Few (None Seen) Urine Glucose Normal mg/dL (Normal) Urine Opiates Screen Neg (NEGATIVE) Urine Fentanyl Screen Neg (NEGATIVE) Urine Barbiturates Screen Neg (NEGATIVE) Urine Phencyclidine Screen Neg (NEGATIVE) Urine Amphetamines Screen Neg (NEGATIVE) Urine Benzodiazepines Screen Neg (NEGATIVE) Urine Cocaine Screen Neg (NEGATIVE) Urine Cannabinoids Screen Neg (NEGATIVE) Other Laboratory Tests 03/05/25 06:05 Brief Hx & Hospital Course: Justice is a 19-year-old female with past medical history of 1 month back after unplanned who was lost to follow-up presented to the ER with a chief complaint of lower abdominal pain and back pain for the past 2 weeks. Patient reports fever and chills for the same duration along with intractable nausea and vomiting which is yellowish in color. She reports diffuse lower abdominal pain, 6/10 without any vaginal discharge. She reports that she has been having chronic back pain for the past 1 year after she had her last section which recently got worsened for the past month after the . In addition she reports pleuritic chest pain. She denies any urinary dysuria, frequency, urgency and reports that the urine is clear. Patient has no primary care physician or OBGYN follow up. She denies taking any medications at home. On arrival to the ER, patient was tachycardic, febrile at 100.3 F, blood pressure 93/49 and saturating on room air. Hemoglobin 9.9, hematocrit 28. WBC 10. HCG was 129. UA showed 3+ blood, 20 RBCs and 45 WBCs with moderate bacteriuria, probably asymptomatic bacteriuria. Ultrasound abdomen showed thickened endometrium at 1.3 cm with heterogenicity probably endometritis. Social history: Lives in mother, quit vaping 2 weeks ago. Patient vape for the past 5 years. Denies marijuana. Drinks occasionally. Denies illicit drug use. Hospital course: Patient was admitted on the line of endometritis, Uterus grossly unremarkable with thickened and heterogeneous endometrium, nonspecific. Findings may reflect endometritis. Patient was given empiric antibiotic of clindamycin and gentamicin, IV fluid and pain management. Gynecology consulted, performed dilatation and curettage with no preoperative complication. Postop, the patient was feeling better with no pain and vaginal bleeding. Beta-hCG was downtrending. Electrolyte imbalance, hypokalemia repleted. On 03/05, the patient was feeling better, had no active bleeding and pain. Discharge plan discussed with the patient with the patient discharged home. Discharge plan: Tablet Augmentin b.i.d. for 7 days Follow up with the PCP within 1 week of the discharge. Operations or Procedures [facility] OB Operative Report w/Coding Patient Name: Tamika Key Unit Number: [id number] Date of : 2005 Patient Status: Admitted Inpatient Attending Doctor: Alona Guzman Resdient Operative Report Operative Report DATE OF OPERATION: 03/04/25 PREOPERATIVE DIAGNOSES: Incomplete ,sepsis due to retained poc and uti ,severe anemia POSTOPERATIVE DIAGNOSES: same SURGEON: Renetta Jacques D.O. ANESTHESIOLOGIST: [email or web address] TYPE OF ANESTHESIA : MAC CONSENT: The patient was informed of the risks and benefits of the procedure. The patient was informed of the risks and benefits of the procedure. These include but are not limited to , complications of anesthesia, postoperative infection, incomplete relief of symptoms, recurrence of symptoms, damage to blood vessels, nerves and tendons, deep venous thrombosis, pulmonary embolism and possible need for repeat surgery in the future. FINDINGS: Cervix is 1 cm and uterus 9 weeks' size. Adnexa nonpalpable.mod amount of poc obtained TISSUE TO PATHOLOGY: POC. PROCEDURES: Dilatation and curettage and suction curettage. PROCEDURE IN DETAIL: The patient was taken to the operating room where she was placed under MAC anesthesia. The patient was then prepped and draped in the usual sterile manner in dorsal lithotomy position. Bladder was emptied using straight catheter. Examination under anesthesia revealed the above findings. A weighted speculum was placed in the vagina. Anterior lip of the cervix was grasped using a single-tooth tenaculum. Cervix was dilated. Uterus was sounded to 9 cm. Products of conception were evacuated using suction curette, size #7, sharp curetting of endometrial cavity was done. The patient tolerated the procedure well. All the instruments were removed from vagina and cervix. The patient was taken to the recovery room in a stable condition. ESTIMATED BLOOD LOSS: 100 mL Visit Coding OBGYN Visit Coding OBGYN Date of Service: Mar 04, 2025 Billing Provider: RENETTA JACQUES DO [employer] Common Visit Codes: 83694-OYV/OBS SAME DATE (HIGH) [employer] Procedure Codes: 57116-B&C, DIAG OR THERAPEUTIC RENETTA JACQUES DO Mar 04, 2025 10:07 Condition at Discharge: Stable Final Diagnosis/Problems List Sepsis, due to endometritis/UTI Endometritis, due to incomplete /retained poc Complicated UTI Status post D&C, suction currettage Severe anemia, likely due to bleeding/iron-deficiency anemia Status post blood transfusion, 2 units Hypokalemia Hyponatremia Raised bilirubin Chronic back pain Intractable nausea and vomiting likely due to endometriosis History of anxiety/depression/ADHD Discharge Disposition: Home Discharge Instruct/Medications Diet: Regular Activity: No Restrictions, As Tolerated Follow Up/Referral: Follow up with the PCP within 1 week of the discharge. Medications: Augmentin b.i.d. for 7 days Discharge Statement: "Patient was advised to return to the ER or call 911 if any headaches, dizziness, shortness of breath, chest pain, abdominal pain, bleeding, fevers, or worsening of medical condition. Patient was counseled about treatment plan, medications, possible side effects, patientverbalized understanding. All questions were answered to the best of my ability. This discharge took greater then 30 minutes in planning, reviewing documentation, counseling the patient, and discussing with other team members." ASSESSMENT ASSESSMENT Assessment Endometritis ALONA GUZMAN RESREGI Mar 05, 2025 12:02
[2025-03-05 13:10] VITALS: BP 93/57; PULSE 74; RESP 19; TEMP 97.7; O2SAT 98
[2025-03-05 13:12] VITALS: BP 107/39; PULSE 94; RESP 19; TEMP 98.1; O2SAT 99
--- NOTE | 2025-03-05 22:11 | DVHPN2 ---
Consult Progress Note Date Seen: Mar 05, 2025 Subjective Patient reports: Other (no abdominal pain , no longer having any bleeding events overnight , on a smoke break , no tenderness , no fevers in last 24 hours ) Objective vital signs Vital Sign Date Time Temp Pulse Resp B/P (MAP) Pulse Ox O2 Delivery O2 Flow Rate FiO2 03/05/25 13:12 98.1 94 19 99 03/05/25 13:10 93/57 (69) 03/05/25 08:00 Room Air* 0 21 Total Intake and Output 03/04/25 03/04/25 03/05/25 15:00 23:00 07:00 Intake Total 0 ml 1150 ml 290 ml Balance 0 ml 1150 ml 290 ml medications Physical Exam: General: NAD Neck: Supple. No masses. HEENT: PERRL. Normal lids and conjunctiva. Moist mucous membranes. Oropharynx without lesions, exudates or excessive erythema. Normal appearance of the external aspects of the nose and ears. Heart: Regular rhythm, normal rate. No murmur. No lower extremity edema. Lungs: Normal respiratory effort. Clear to auscultation bilaterally. No wheezes. No crackles. Abdomen: Mildly gravid uterus, tenderness in lower abdomen. Soft. Non- tender elsewhere. Non-distended. No masses or abdominal hernia. Msk: Tenderness in lower back. No digital cyanosis. Normal strength and tone in all 4 limbs. Skin: Warm and dry, no rashes. Neuro: Alert. No facial droop or slurred speech. Extra-ocular movements intact. Sensation intact to soft touch in all 4 limbs. Psych: Appropriate mood. Full affect. Oriented to person, place, time, and situation. laboratory and microbiology Laboratory Tests 03/05/25 06:05 Test 03/05/25 06:05 Range/Units Serum Glucose 128 H 74-106 mg/dL Problem List/Assessment/Plan Problems(with codes): (1) Endometritis (2) Pyelonephritis (3) UTI (urinary tract infection) (4) Nausea and vomiting (5) Fever in adult Problem List/Assessment/Plan ASSESSMENT AND PLAN: ID Problem List: - Status post medical one month ago - Abnormal uterine bleeding - Suspected septic - Possible endometritis - Anemia (hemoglobin 7-9.9) - Possible urinary tract infection Assessment This is a 19-year-old female, , with a history of prior normal vaginal delivery and medical approximately one month ago, presenting with continued abnormal uterine bleeding, fever, chills, anemia (hemoglobin reportedly as low as 7, currently 9.9), and lower back pain. Patient reports persistent bleeding since , with associated fevers and chills. Denies significant alcohol or heavy drug use; is a former smoker. Ultrasound shows thickened, heterogeneous endometrium (1.3 cm), possibly reflecting endometritis; uterus otherwise unremarkable; right ovary normal with preserved color flow. Labs reveal leukocytosis (WBC 10.0), anemia (Hb 9.9), and thrombocytosis (platelets 281). Basic metabolic panel is unremarkable. Liver function tests are within normal limits. Beta-hCG is 26.1. Urinalysis shows pyuria and leukocyte esterase, raising concern for possible urinary tract infection. Infectious screening (influenza, COVID-19, HIV) negative. Blood cultures are negative to date. Chest imaging suggests increased interstitial prominence, possibly viral pneumonia. 03/05: [place] normal Plan: - STOP clindamycin and gentamicin - Start ampicillin 2 g IV every 6 hours. - Can discharge on Augmentin 875 125 mg BID x7 days - When stable, consider discharge on oral amoxicillin-clavulanate (Augmentin) regimen. - Monitor for signs and symptoms of infection; reassess clinical status routinely. - Follow up on urinalysis and pending urine/blood cultures. - Monitor hemoglobin and transfuse if hemoglobin <7 or platelets <100. - Symptomatic management of lower back pain and abnormal uterine bleeding. - Monitor for progression/resolution of fevers and chills. - Assess for need for further gynecological evaluation/intervention if bleeding persists or infection is unresponsive. Isolation Precautions: Not specified. Plan discussed with: LUCERO Brock MD Mar 05, 2025 22:11
[2025-03-06 03:07] LABS: Chlamydia Trachomatis, NAA Negative (Negative); Neisseria gonorrhoeae, NAA Negative (Negative)
== END 2025-03-05 13:44 | disposition left against medical advice (07) | DRG 543 ==
LOC: ER 17:36 → OVERFLOW 23:50 → TELE-WESTW 03-04 13:46 → WEST WING 03-05 08:26
PROVIDERS: ADMIT Student in an Organized Health Care Education/Training Program; ATTEND Emergency Medicine
PROC: 30233N1 Transfusion of Nonautologous Red Blood Cells into Peripheral Vein, Percutaneous Approach (ICD-10-PCS; 2025-03-04)
PROC: 10D17ZZ Extraction of Products of Conception, Retained, Via Natural or Artificial Opening (ICD-10-PCS; principal; 2025-03-04 07:33)
DX: O03.37 Sepsis following incomplete spontaneous abortion (principal); A41.9 Sepsis, unspecified organism; E87.1 Hypo-osmolality and hyponatremia; N12 Tubulo-interstitial nephritis, not specified as acute or chronic; G89.29 Other chronic pain; M54.9 Dorsalgia, unspecified; D50.9 Iron deficiency anemia, unspecified; N39.0 Urinary tract infection, site not specified; D75.839 Thrombocytosis, unspecified; M54.50 Low back pain, unspecified; E87.6 Hypokalemia; F32.A Depression, unspecified; Z20.822 Contact with and (suspected) exposure to COVID-19; F41.9 Anxiety disorder, unspecified; F90.9 Attention-deficit hyperactivity disorder, unspecified type; Z88.5 Allergy status to narcotic agent; Z88.8 Allergy status to other drugs, medicaments and biological substances; Z79.899 Other long term (current) drug therapy; Z87.891 Personal history of nicotine dependence
CPT/HCPCS: 36415; 36430; 71045; 76856; 80053; 80170; 80307; 81001; 82306; 82607; 83540; 83550; 83605; 83690; 83735; 84443; 84702; 85025; 85610; 85730; 86703; 86850; 86900; 86901; 86920; 87040; 87426; 87804; 96365; 96366; 96367; 96375; 99291; G0378; J0330; J1100; J1580; J2003; J2250; J2405; J2543; J2704; J3490; J7060

== ENCOUNTER 2025-03-08 19:17 | Emergency (ER) | payer MEDICAID ==
[~2025-03-08] VITALS: Ht 170.2 cm; Wt 48.0 kg
[~2025-03-08 19:17] MED LIST: AUG875T PO
--- NOTE | 2025-03-08 19:42 | ED.PDOC ---
C[facility]TER [facility] HPI Comments 19-year-old female came to ER due to vaginal bleeding. Patient was just di scharged here 3 days ago and was diagnosed with 1. Sepsis, due to endometritis/UTI, 2. Endometritis, due to incomplete /retained poc, 3. Complicated UTI, 4. Status post D&C, suction curettage, 5. Severe anemia, likely due to bleeding/iron-deficiency anemia, 6. Status post blood transfusion, 2 units, 7. Hypokalemia, 8. Hyponatremia, 9. Raised bilirubin, 10. Chronic back pain, 11. Intractable nausea and vomiting likely due to endometriosis, 12. History of anxiety/depression/ADHD Patient is still presenting with lower abdominal cramping pain, and episodes of vaginal bleeding with clots. Patient was advised to proceed to the emergency room if vaginal bleeding persists or worsens Chief Complaint: Vaginal bleeding Time Seen by MD: 19:41 Reviewed Notes: Nurses Notes Allergies: Coded Allergies: Lidocaine (Verified Allergy, Severe, anaphylaxis, 03/03/25) Morphine (Verified Allergy, Severe, anaphylaxis, 03/03/25) Home Meds Active Scripts Amoxicillin & Pot Clavulanate (AUGMENTIN TABLET) 875 Mg Tb, 875 MG PO BID for 7 Days, #14 TAB Prov:SEAN HUANG RESDIENT 03/05/25 Information Source: Patient Mode of Arrival: Ambulatory Timing: Days Prehospital treatment: None Severity: Moderate Vaginal Discharge: None Vaginal Lesions: None Bleeding Quality: Bright Red, Clotted Vaginal Mass: None Onset Of Mass/Bleeding: Other (After D and C) Sexual Activity: Neither Last Consensual [place]: Unknown Associated Signs and Symptoms: Vaginal Bleeding, Abdominal Pain Past Medical History PAST MEDICAL HISTORY: Anxiety, Depression [employer] History: No Pertinent [employer] History 2 Para 1 Family History Family History: Reviewed,noncontributory to illness Social History Smoker: Non-Smoker Alcohol: Denies ETOH Use Drugs: Denies Drug Use Lives In: Home Constitutional: denies: chills, diaphoresis, fatigue, fever, malaise, sweats, weakness, others EENTM: denies: blurred vision, double vision, ear bleeding, ear discharge, ear drainage, ear pain, ear ringing, eye pain, eye redness, hearing loss, mouth pain, mouth swelling, nasal discharge, nose bleeding, nose congestion, nose pain, photophobia, tearing, throat pain, throat swelling, voice changes, others Respiratory: denies: cough, hemoptysis, orthopnea, SOB at rest, shortness of breath, SOB with excertion, stridor, wheezing, others Cardiovascular: denies: chest pain, dizzy spells, diaphoresis, Dyspnea on exertion, edema, irregular heart beat, left arm pain, lightheadedness, palpitations, PND, syncope, others Gastrointestinal: reports: abdominal pain; denies: abdomen distended, blood streaked bowels, constipated, diarrhea, dysphagia, difficulty swallowing, hematemesis, melena, nausea, poor appetite, poor fluid intake, rectal bleeding, rectal pain, vomiting, others Genitourinary: reports: abnormal vagina bleeding; denies: burning, dyspareunia, dysuria, flank pain, frequency, hematuria, incontinence, pain, , vagina discharge, urgency, others Neurological: denies: dizziness, fainting, headache, left sided numbness, left sided weakness, numbness, paresthesia, pre-existing deficit, right sided numbness, right sided weakness, seizure, speech problems, tingling, tremors, weakness, others Musculoskeletal: denies: back pain, gout, joint pain, joint swelling, muscle pain, muscle stiffness, neck pain, others Integumetry: denies: bruises, change in color, change in hair/nails, dryness, laceration, lesions, lumps, rash, wounds, others Allergic/Immunocompromised: denies: Difficulty Healing, Frequent Infections, Hives, Itching, others Hematologic/Lymphatic: denies: anemia, blood clots, easy bleeding, easy bruising, swollen glands, others Endocrine: denies: excessive hunger, excessive sweating, excessive thirst, excessive urination, flushing, intolerance to cold, intolerance to heat, unexplained weight gain, unexplained weight loss, others Psychiatric: denies: anxiety, bipolar disorder, depression, hopeless, panic disorder, schizophrenia, sleepless, suicidal, others Physical Exam General Appearance: No Apparent Distress, Normal HEENT: Normal ENT Inspection, Pharynx Normal, TMs Normal Neck: Full Range of Motion, Non-Tender, Normal, Normal Inspection Respiratory: Chest Non-Tender, Lungs Clear, No Accessory Muscle Use, No Respiratory Distress, Normal Breath Sounds Cardiovascular: No Edema, No JVD, No Murmur, No Gallop, Normal Peripheral Pulses, Regular Rate/Rhythm Breast Exam: Deferred Gastrointestinal: No Organomegaly, Non Tender, No Pulsatile Mass, Normal Bowel Sounds, Soft Genitalia: Deferred Pelvic: Deferred Rectal: Deferred Extremities: No calf tenderness, Normal capillary refill, Normal inspection, Normal range of motion, Non-tender, No pedal edema Musculoskeletal : Apperance: Normal Neurologic: Alert, bill board poster II-XII nml as Tested, No Motor Deficits, Normal Affect, Normal Mood, No Sensory Deficits Cerebellar Function: Normal Reflexes: Normal Skin: Dry, Normal Color, Warm Lymphatic: No Adenopathy Was a procedure done? Was a procedure done?: No Differential Diagnosis ([employer]) Vaginal Bleeding: - Complete, - Incomplete, Blood Loss Anemia, UTI X-Ray, Labs, Meds, VS Vital Signs Date Time Temp Pulse Resp B/P (MAP) Pulse Ox O2 Delivery O2 Flow Rate FiO2 03/08/25 22:50 97.8 78 14 111/67 (82) 100 97.8 03/08/25 22:50 78 14 100 Room Air* 0 21 03/08/25 19:44 98.0 86 16 114/73 (87) 97 98.0 Lab Test 03/08/25 21:46 03/08/25 20:00 03/08/25 19:48 Range/Units White Blood Count 10.3 # 4.4-10.8 10^3/uL Red Blood Count 4.10 4.0-5.20 10^6/uL Hemoglobin 12.3 # 12.2-16.2 g/dL Hematocrit 36.0 # 36.0-46.0 % Mean Corpuscular Volume 87.7 80.0-100.0 fL Mean Corpuscular Hemoglobin 29.9 28.0-32.0 pg Mean Corpuscular Hemoglobin Concent 34.1 32.0-36.0 g/dL Red Cell Distribution Width 15.9 H 11.8-14.3 % Platelet Count 630 H 140-450 10^3/uL Mean Platelet Volume 7.0 6.9-10.8 fL Neutrophils (%) (Auto) 59.9 37.0-80.0 % Lymphocytes (%) (Auto) 28.2 10.0-50.0 % Monocytes (%) (Auto) 7.9 0.0-12.0 % Eosinophils (%) (Auto) 3.1 0.0-7.0 % Basophils (%) (Auto) 0.9 0.0-2.0 % Neutrophils # (Auto) 6.2 1.6-8.6 10 ^3/uL Lymphocytes # (Auto) 2.9 0.4-5.4 10 ^3/uL Monocytes # (Auto) 0.8 0-1.3 10 ^3/uL Eosinophils # (Auto) 0.3 0-0.8 10 ^3/uL Basophils # (Auto) 0.1 0-0.2 10 ^3/uL Nucleated Red Blood Cells 0.0 % Urine Color Light-yellow Yellow Urine Clarity Clear Clear Urine pH 6.5 5.0-9.0 Urine Specific [place] 1.012 1.001-1.035 Urine Protein Negative Negative Urine Ketones Negative Negative Urine Blood 2+ H Negative /uL Urine Nitrite Negative Negative Urine Bilirubin Negative Negative Urine Urobilinogen Normal Negative mg/dL Urine Leukocyte Esterase Negative Negative /uL Urine RBC 3 0 - 4 /hpf Urine Microscopic WBC 4 0-5 /HPF Urine Squamous Epithelial Cells Few <5 /hpf Urine Bacteria None seen None Seen /hpf Urine Glucose Normal Normal mg/dL Prothrombin Time 9.7 9.3-11.8 sec Prothrombin Time INR 0.91 0.9-1.15 Activated Partial Thromboplast Time 25.9 24.5-34.5 SEC Sodium Level 138 136-145 mmol/L Potassium Level 4.0 3.5-5.1 mmol/L Chloride Level 98 98-107 mmol/L Carbon Dioxide Level 33 H 20-31 mmol/L Anion Gap 7 5-15 Blood Urea Nitrogen 15 9-23 mg/dL Creatinine 0.82 0.550-1.02 mg/dL Glomerular Filtration Rate Calc 104 >90 mL/min BUN/Creatinine Ratio 18.3 10.0-20.0 Serum Glucose 66 L 74-106 mg/dL Calcium Level 10.6 H 8.7-10.4 mg/dL Total Bilirubin 0.7 0.2-1.0 mg/dL Aspartate Amino Transferase (AST) 8 L 13-40 U/L Alanine Aminotransferase (ALT) 13 7-40 U/L Alkaline Phosphatase 108 46-116 U/L Total Protein 8.2 5.7-8.2 g/dL Albumin 4.6 3.2-4.8 g/dL Beta HCG, Quantitative 5.5 H 1.5-4.2 mIU/mL PROCEDURE(s): PELUS - PELVIC REASON: recent d+c, bleeding, r/o retained POCs ORDER NUMBER(s): [id number], ACCESSION NUMBER(s): [id number] INDICATION: recent d+c, bleeding, r/o retained POCs TECHNIQUE: Multiple real-time grayscale transabdominal sonographic images along with color and duplex Doppler of the uterus and ovaries were obtained. COMPARISON: US PELVIC on DOS: 03/03/25 FINDINGS: The uterus measures 8.2 x 3.9 x 5.3 cm. The endometrial stripe measures 4.8 mm. The right ovary not visualized The left ovary not visualized IMPRESSION: 1. Grossly unremarkable pelvic ultrasound. 2. Endometrium measures 4.8 mm Time of 1ST Reevaluation: 19:38 Reevaluation 1ST: Unchanged Patient Education/Counseling: Diagnosis, Treatment Family Education/Counseling: No Family Present Departure 1 Departure Time of Disposition: 04:09 Impression: Primary Impression: Vaginal bleeding Additional Impression: Post-operative state Disposition: 01 HOME / SELF CARE / HOMELESS Condition: Stable Discharged With: Self Critical Care Note Critical Care Time?: No Stability Stability form required: No Heart Score Heart Score: Heart Score Response (Comments) Value History N/A 0 EKG N/A 0 Age N/A 0 Risk Factors N/A 0 Troponin N/A 0 Total 0 I personally scribed for CAMILLA TINAJERO MD ([email or web address]) on 03/08/25 at 19:42. Electronically submitted by Umer Wheatley ([email or web address]). I personally scribed for CAMILLA TINAJERO MD ([email or web address]) on 03/08/25 at 21:08. Electronically submitted by Umer Wheatley ([email or web address]). CAMILLA TINAJERO MD Mar 08, 2025 19:42
[2025-03-08 20:02] LABS: Urine Bacteria None Seen /hpf (None Seen)
[2025-03-08 20:16] LABS: Urine Blood 2+ /uL (Negative); Urine Clarity Clear (Clear); Urine Color Light-Yellow (Yellow); Urine Protein, UAD Negative (Negative); Urine Specific Gravity 1.012 (1.001-1.035); Urine Squamous Epithelial Cell FEW /hpf (<5); Urine Urobilinogen Normal (Negative); Urine WBC 4 /HPF (0-5); Urine pH 6.5 (5.0-9.0)
[2025-03-08 20:20] LABS: INR 0.91 (0.9-1.15); Partial Thromboplastin Time 25.9 SEC (24.5-34.5); Prothrombin Time 9.7 sec (9.3-11.8)
[2025-03-08 20:23] LABS: Alanine Aminotransferase 13 U/L (7-40); Albumin 4.6 g/dL (3.2-4.8); Alkaline Phosphatase 108 U/L (46-116); Anion Gap 7 (5-15); BUN/Creatinine Ratio 18.3 (10.0-20.0); Blood Urea Nitrogen 15 mg/dL (9-23); Chloride 98 mmol/L (98-107); Sodium 138 mmol/L (136-145)
[2025-03-08 20:24] LABS: Aspartate Aminotransferase 8 U/L (13-40); Bilirubin, Total 0.7 mg/dL (0.2-1.0); Calcium 10.6 mg/dL (8.7-10.4); Carbon Dioxide 33 mmol/L (20-31); Glucose 66 mg/dL (74-106); Total Protein 8.2 g/dL (5.7-8.2)
--- NOTE | 2025-03-08 20:54 | DVH ---
INDICATION: recent d+c, bleeding, r/o retained POCs TECHNIQUE: Multiple real-time grayscale transabdominal sonographic images along with color and duplex Doppler of the uterus and ovaries were obtained. COMPARISON: US PELVIC on DOS: 03/03/25 FINDINGS: The uterus measures 8.2 x 3.9 x 5.3 cm. The endometrial stripe measures 4.8 mm. The right ovary not visualized The left ovary not visualized IMPRESSION: 1. Grossly unremarkable pelvic ultrasound. 2. Endometrium measures 4.8 mm HS:Y
[2025-03-08 22:27] LABS: Basophils # (auto) 0.1 10 ^3/uL (0-0.2); Eosinophils # (auto) 0.3 10 ^3/uL (0-0.8); Hemoglobin 12.3 g/dL (12.2-16.2); Lymphocytes # (auto) 2.9 10 ^3/uL (0.4-5.4); Monocytes # (auto) 0.8 10 ^3/uL (0-1.3); Neutrophils # (auto) 6.2 10 ^3/uL (1.6-8.6); White Blood Cell 10.3 10^3/uL (4.4-10.8)
[2025-03-08 22:28] LABS: Basophils % (auto) 0.9 % (0.0-2.0); Eosinophils % (auto) 3.1 % (0.0-7.0); Lymphocytes % (auto) 28.2 % (10.0-50.0); Mean Corpuscular Hemoglobin 29.9 pg (28.0-32.0); Mean Corpuscular Hgb Conc. 34.1 g/dL (32.0-36.0); Mean Corpuscular Volume 87.7 fL (80.0-100.0); Monocytes % (auto) 7.9 % (0.0-12.0); Neutrophils % (auto) 59.9 % (37.0-80.0); Platelet Count (auto) 630 10^3/uL (140-450); Red Cell Distribution Width 15.9 % (11.8-14.3)
[2025-03-08 22:50] VITALS: BP 111/67; PULSE 78; RESP 14; TEMP 97.8; O2SAT 100
== END 2025-03-08 23:02 | disposition home or self-care (01) ==
LOC: ER 19:17
DX: N93.9 Abnormal uterine and vaginal bleeding, unspecified (principal); O03.0 Genital tract and pelvic infection following incomplete spontaneous abortion; F41.9 Anxiety disorder, unspecified; Z98.890 Other specified postprocedural states; Z88.5 Allergy status to narcotic agent
CPT/HCPCS: 36415; 76856; 80053; 81001; 84702; 85610; 85730